=== PATIENT | female | born 1995 | race Caucasian/White ===

== ENCOUNTER 2017-05-24 00:15 | Emergency (ER) | payer BC, OTHER ==
[2017-05-24 00:30] VITALS: BP 124/85
[2017-05-24] MEDS ORDERED: ONDANSETRON 4 MG TAB.RAPDIS PO ONE (01:31)
[2017-05-24] MEDS ORDERED: DIPHENHYDRAMINE HCL 25 MG CAPSULE PO ONE (01:31)
[2017-05-24] MEDS ORDERED: ONDANSETRON ODT 4 MG TAB (6 TAB/DSPK) PO PRN (01:31)
--- NOTE | 2017-05-24 01:32 | ER Document Report ---
ED General - General Chief Complaint: Allergic Reaction Stated Complaint: SKIN PROBLEMS Time Seen by Provider: 05/24/17 01:03 Notes: Patient is a 21-year-old female who says that her and her were eating tuna. After eating a tuna they both became flushed and red and developed a rash. She initially had some mild difficulty breathing but that has since resolved. She had some itching. She did not take any Benadryl. She is eating tuna several times in the past without having this reaction. No other complaints at this time. TRAVEL OUTSIDE OF THE [place] IN LAST 30 DAYS: No - Related Data Allergies/Adverse Reactions: No Known Allergies Allergy (Verified 05/24/17 01:49) Home Medications: Current Home Medications Dextroamphetamine/Amphetamine [Dextroamp-Amphet ER 10 mg Cap] 2 cap PO QAM 05/24 [History] Past Medical History - Social History Smoking Status: Never Smoker Chew tobacco use (# tins/day): No Frequency of alcohol use: Social Drug Abuse: None Family History: Reviewed & Not Pertinent Patient has suicidal ideation: No Patient has homicidal ideation: No Renal/ Medical History: Denies: Hx Peritoneal Dialysis Psychiatric Medical History: Reports: Hx Attention Deficit Hyperactivity Disorder Past Surgical History: Reports: Hx Breast Surgery - breast reduction; L breast implant - Immunizations Hx Diphtheria, Pertussis, Tetanus Vaccination: Yes Review of Systems - Review of Systems Notes: My Normal Review Basic REVIEW OF SYSTEMS: CONSTITUTIONAL : Denies fever, chills, or sweats. Denies recent illness. EENT: Denies eye, ear, throat, or mouth pain or symptoms. Denies nasal or sinus congestion. CARDIOVASCULAR: Denies chest pain. RESPIRATORY: initial mild difficulty breathing which has since resolved. GASTROINTESTINAL: Denies abdominal pain. Some nausea. No vomiting. GENITOURINARY: Denies difficulty urinating, painful urination, burning, frequency, or blood in urine.. SKIN: Tenderness over both upper extremities. Redness of the face. NEUROLOGICAL: Denies altered mental status or loss of consciousness. Denies headache. Denies weakness or paralysis or loss of use of either side. Denies problems with gait or speech. Denies sensory or motor loss. ALL OTHER SYSTEMS REVIEWED AND NEGATIVE. Physical Exam - Vital signs Vitals: Temp Pulse Resp BP Pulse Ox 97.5 F 87 16 124/85 100 05/24/17 00:26 05/24/17 00:26 05/24/17 00:26 05/24/17 00:05/24/17 00:26 - Notes Notes: General Appearance: Well nourished, alert, cooperative, no acute distress, no obvious discomfort. Well appearing. Vitals: reviewed, See vital signs table. Head: no swelling or tenderness to the head Eyes: PERRL, EOMI, Conjuctiva clear Mouth: No decreasd moisture Throat: No tonsillar inflammation, No airway obstruction, No lymphadenopathy Lungs: No wheezing, No rales, No rhonci, No accessory muscle use, good air exchange bilaterally. Heart: Normal rate, Regular rythm, No murmur, no rub Extremities: strength 5/5 in all extremities, good pulses in all extremities, no swelling or tenderness in the extremities, no edema. Skin: Diffuse redness on upper extremities and face. Consistent with allergic type reaction. Redness on the torso. Neuro: speech clear, oriented x 3, normal affect, responds appropriately to questions. Course - Re-evaluation Re-evalutation: 05/24/17 05:49 Patient has signs and symptoms consistent with scombroid poisoning from eating a tuna. She will be placed on Benadryl. She has no airway compromise. No swelling of her tongue or throat. This time I feel patient safe to be discharged home. I strongly encourage her to return to ER if she has difficulty breathing, any swelling of the tongue lips or throat, or she feels unwell. Patient agrees with plan and will be discharged home. Dictation of this chart was performed using voice recognition software; therefore, there may be some unintended grammatical errors. - Vital Signs Vital signs: Temp Pulse Resp BP Pulse Ox 97.5 F 87 16 124/85 100 05/24/17 00:26 05/24/17 00:26 05/24/17 00:05/24/17 00:05/24/17 00:26 Discharge - Discharge Clinical Impression: Scombroid fish poisoning Qualifiers: Encounter type: initial encounter Injury intent: accidental or unintentional Qualified Code(s): T61.11XA - Scombroid fish poisoning, accidental ( unintentional), initial encounter Condition: Good Disposition: HOME, SELF-CARE Additional Instructions: Scromboid Fish Poisoning Scromboid poisoning occurs when you eat fish meat containing a toxin. The toxin forms when raw fish of the tuna and mackerel family sits in a warm environment. The toxin gives the fish a peppery taste. About 30 minutes after eating the fish, symptoms start. These include pounding headache, flushing, rapid palpitations, lightheadedness, and shortness of breath. Some patients may also have vomiting, diarrhea, abdominal pain, hives, or wheezing. We treat scromboid poisoning with antihistamines. Adrenaline and IV fluids may be needed for more severe cases. Return if there's increasing shortness of breath, severe weakness, confusion, repeated vomiting, or any other sign of worsening condition. Please return to the ER immediately if you have worsening of the rash, difficulty breathing, tongue swelling, throat swelling, or feel unwell. Please take Benadryl 25 to 50mg every 6 hours for redness or itching.
== END 2017-05-24 01:45 | disposition home or self-care (01) ==
LOC: ER 00:15
DX: T61.11XA Scombroid fish poisoning, accidental (unintentional), initial encounter (principal)
CPT/HCPCS: 99283; S0119

== ENCOUNTER 2017-07-31 02:34 | Emergency (ER) | payer OTHER ==
[2017-07-31 02:46] VITALS: BP 122/83
--- NOTE | 2017-07-31 03:23 | ER Document Report ---
HPI - HPI Patient complains to provider of: bleeding right ear canal Onset: This morning Onset/Duration: Sudden Pain Level: 3 Context: 22-year-old felt popping and cracking in her right ear so she tried to use a Q- tip and while she was using the Q-tip her ear canal started to bleed. She still feels popping and cracking. Associated Symptoms: None Exacerbated by: Denies Relieved by: Denies Similar symptoms previously: No Recently seen / treated by doctor: No - ROS ROS below otherwise negative: Yes Systems Reviewed and Negative: Yes All other systems reviewed and negative - REPRODUCTIVE LMP: 5 days ago Past Medical History - General Information source: Patient - Social History Smoking Status: Unknown if Ever Smoked Frequency of alcohol use: None Drug Abuse: None Lives with: Spouse/Significant other Family History: Reviewed & Not Pertinent Renal/ Medical History: Denies: Hx Peritoneal Dialysis Psychiatric Medical History: Reports: Hx Attention Deficit Hyperactivity Disorder Past Surgical History: Reports: Hx Breast Surgery - breast reduction; L breast implant - Immunizations Hx Diphtheria, Pertussis, Tetanus Vaccination: Yes Vertical Provider Document - CONSTITUTIONAL Agree With Documented VS: Yes Exam Limitations: No Limitations General Appearance: No Apparent Distress - INFECTION CONTROL TRAVEL OUTSIDE OF THE [place] IN LAST 30 DAYS: No - HEENT Notes: abrasion base of right ear canal, earwig crawled out of the canal. TM normal - NECK Neck: Supple - RESPIRATORY O2 Sat by Pulse Oximetry: 100 Course - Vital Signs Vital signs: Temp Pulse Resp BP Pulse Ox 97.8 F 81 20 122/83 100 07/31/17 02:43 07/31/17 02:43 07/31/17 02:43 07/31/17 02:43 07/31/17 02:43 Discharge - Discharge Clinical Impression: Right ear canal abrasion, Crawling insect removed from right ear Condition: Good Disposition: HOME, SELF-CARE Instructions: Abrasions ([facility]) Additional Instructions: bacitracin to right ear canal abrasion to er any concerns Please complete the patient satisfaction survey if you get one, and return it.. If you do not receive a survey, then you can go to the [facility] website, [email or web address] and place your comments about your very good care. Thank you very much. It was a pleasure being your medical provider today.
== END 2017-07-31 04:02 | disposition home or self-care (01) ==
LOC: ER 02:34
DX: T16.1XXA Foreign body in right ear, initial encounter (principal); S00.411A Abrasion of right ear, initial encounter; H92.21 Otorrhagia, right ear; X58.XXXA Exposure to other specified factors, initial encounter
CPT/HCPCS: 99282